=== PATIENT | female | born 1995 | race Caucasian/White ===

== ENCOUNTER 2017-08-13 12:13 | Emergency (ER) | payer MEDICAID ==
[2017-08-13] MEDS ORDERED: NS 0.9% 1000 ML* 1,000 ML IV ONE (13:13)
[2017-08-13] MEDS ORDERED: Ketorolac INJ* 30 MG/ML 1 ML VIAL IV ONE (13:13)
[2017-08-13 13:25] LABS: Hematocrit 43 % (35-47); Hemoglobin 14.6 g/dl (12.0-16.0); Mean Corpuscular HGB Conc 34 g/dl (31-36); Mean Corpuscular Hemoglobin 30 pg (27-31); Mean Corpuscular Volume 89 fL (80-97); Mean Platelet Volume 9 um3 (7.4-10.4); Red Blood Count 4.87 10^6/ul (4.0-5.4); Red Cell Distribution Width 13 % (10.5-15); White Blood Count 7.5 10^3/ul (3.5-10.8)
[2017-08-13 13:36] LABS: Urine Bacteria Absent (Absent); Urine Bilirubin Negative (Negative); Urine Glucose Negative (Negative); Urine Nitrite Negative (Negative)
[2017-08-13 13:42] LABS: ALT 37 U/L (7-52); AST 21 U/L (13-39); Albumin 5.1 g/dL (3.2-5.2); Alkaline Phosphatase 66 U/L (34-104); Anion Gap 9 mmol/L (2-11); BUN/Creatinine Ratio 20.2 (8-20); Blood Urea Nitrogen 19 mg/dL (6-24); C Reactive Protein 3.49 mg/L (< 5.00); CO2 Carbon Dioxide 25 mmol/L (22-32); Calcium 10.6 mg/dL (8.6-10.3); Chloride 104 mmol/L (101-111); EGFR African American 95.8 (>60); EGFR Non-African American 74.5 (>60); Globulin 2.9 g/dL (2-4); Glucose 93 mg/dL (70-100); Potassium 4.2 mmol/L (3.5-5.0); Sodium 138 mmol/L (133-145)
--- NOTE | 2017-08-13 14:58 | RAD ---
INDICATION: LEFT lower quadrant abdominal/flank pain. COMPARISON: No relevant prior exams available on the [facility] PACS for comparison. TECHNIQUE: Multidetector CT images were obtained from the lung bases to the ischial tuberosities. Evaluation of the viscera is limited without IV contrast. Multiplanar reformation. REPORT: Unremarkable visualized inferior thorax. 22 cm cephalocaudal liver is diffusely decreased in density consistent with fatty infiltration with focal sparing at the gallbladder fossa. No CT abnormality of the gallbladder. Negative for biliary dilatation. Unremarkable pancreas and spleen. Small splenule inferior to the dominant spleen. Negative for CT abnormality of the upper GI, small bowel, appendix visualized extending medial from the tip of the cecum, or colon. Negative for ascites, free air, or significant hernias. Normal adrenal glands. Unremarkable RIGHT kidney and ureter. Mild LEFT hydronephrosis is traced to a 3 mm far distal LEFT ureteral stone just proximal to the ureterovesicular junction. Decompressed urinary bladder limiting assessment. Unremarkable retroverted uterus and adnexal regions. Negative for lymphadenopathy. Unremarkable dominant retroperitoneal vasculature. IMPRESSION: 1. Mild LEFT hydronephrosis is traced to a 3 mm far distal ureteral stone. 2. Negative for additional nephrolithiasis. 3. Normal appendix documented. 4. Hepatomegaly and fatty infiltration of the liver.
[2017-08-13 15:59] VITALS: BP 139/81
[2017-08-13] MEDS ORDERED: Ciprofloxacin TAB* 500 MG PO ONE (17:53)
--- NOTE | 2017-08-13 20:37 | ED ---
Marvin Mack Gabriel, scribed for Ebenezer Tyler MD on 08/13/17 at 1251 . Abdominal Pain/Female - HPI Summary HPI Summary: This patient is a 21 year old F presenting to [facility] accompanied by family with a chief complaint of LLQ pain since this morning. The patient rates the pain 10/ 10 in severity, describes it stabbing and constant, with suddenly onset, and radiating through her entire left side. Symptoms alleviated by lying. She has also tried a heating pad with no relief. Patient reports nausea. Patient denies vomiting, urinary symptoms, and BM trouble. Last week patient states she had RLQ pain [facility] . - History of Current Complaint Chief Complaint: EDAbdPain Stated Complaint: LT ABD & FLANK PAIN Time Seen by Provider: 08/13/17 12:43 Hx Obtained From: Patient Onset/Duration: Lasting Hours - this morning, Still Present Timing: Constant Pain Intensity: 10 Pain Scale Used: 0-10 Numeric Location: Discrete At: RLQ Radiates: Yes Radiates to: Back, Flank Character: Other: - stabbing Associated Signs and Symptoms: Positive: Back Pain, Nausea. Negative: Constipation, Urinary Symptoms, Vomiting Allergies/Adverse Reactions: Allergies Allergy/AdvReac Type Severity Reaction Status Date / Time No Known Allergies Allergy Verified 08/13/17 12:31 PMH/Surg Hx/FS Hx/Imm Hx Previously Healthy: No Endocrine/Hematology History: Denies: Hx Diabetes Cardiovascular History: Denies: Hx Hypertension, Hx Pacemaker/ICD History: Denies: Hx Renal Disease Sensory History: Denies: Hx Hearing Aid Psychiatric History: Denies: Hx Panic Disorder - Surgical History Surgery Procedure, Year, and Place: t&a Infectious Disease History: No Infectious Disease History: Denies: History Other Infectious Disease, Traveled Outside the [place] in Last 30 Days - Family History Known Family History: Positive: Cardiac Disease - paternal grandmother - Social History Alcohol Use: None Substance Use Type: Reports: None Smoking Status (MU): Former Smoker Have You Smoked in the Last Year: No Review of Systems Gastrointestinal: Negative - BM trouble Positive: Abdominal Pain - LLQ , Nausea. Negative: Vomiting Positive: no symptoms reported All Other Systems Reviewed And Are Negative: Yes Physical Exam - Summary Physical Exam Summary: Appearance: The patient is well-nourished in no acute distress and in no acute pain. Skin: The skin is warm and dry and skin color reflects adequate perfusion. HEENT: ~The head is normocephalic and atraumatic. The pupils are equal and reactive. The conjunctivae are clear and without drainage. ~Nares are patent and without drainage. ~Mouth reveals moist mucous membranes and the throat is without erythema and exudate. ~The external ears are intact. The ear canals are patent and without drainage. The tympanic membranes are intact. Neck: the neck is supple with full range of motion and non-tender. There are no carotid bruits. ~There is no neck vein distension. Respiratory: Chest is non-tender. ~Lungs are clear to auscultation and breath sounds are symmetrical and equal. Cardiovascular: Heart is regular rate and rhythm. ~There is no murmur or rub auscultated. ~~There is no peripheral edema and pulses are symmetrical and equal. Abdomen: The abdomen is soft with mild cva tenderness on left, non-tender otherwise.~There are normal bowel sounds heard in all four quadrants and there is no organomegaly palpated. Musculoskeletal: There is no back tenderness noted. ~Extremities are non-tender with full range of motion. ~There is good capillary refill. ~There is no peripheral edema or calf tenderness elicited. Neurological: Patient is alert and oriented to person, place and time. ~The patient has symmetrical motor strength in all four extremities. ~Cranial nerves are grossly intact. Deep tendon reflexes are symmetrical and equal in all four extremities. Psychiatric: The patient has an appropriate affect and does not exhibit any anxiety or depression. Triage Information Reviewed: Yes Vital Signs On Initial Exam: Initial Vitals Temp Pulse Resp BP Pulse Ox 97.6 F 98 16 145/85 99 08/13/17 12:18 08/13/17 12:18 08/13/17 12:18 08/13/17 12:18 08/13/17 12:18 Vital Signs Reviewed: Yes Diagnostics - Vital Signs Vital Signs Temp Pulse Resp BP Pulse Ox 08/13/17 12:18 97.6 F 98 16 145/85 99 - Laboratory Lab Results: Lab Results 08/13/17 08/13/17 08/13/17 Range/Units 13:10 13:10 13:20 WBC 7.5 (3.5-10.8) 10^3/ul RBC 4.87 (4.0-5.4) 10^6/ul Hgb 14.6 (12.0-16.0) g/dl Hct 43 (35-47) % MCV 89 (80-97) fL MCH 30 (27-31) pg MCHC 34 (31-36) g/dl RDW 13 (10.5-15) % Plt Count 229 (150-450) 10^3/ul MPV 9 (7.4-10.4) um3 Neut % (Auto) 70.1 (38-83) % Lymph % (Auto) 20.4 L (25-47) % Hinds % (Auto) 7.7 (1-9) % Eos % (Auto) 1.3 (0-6) % Baso % (Auto) 0.5 (0-2) % Absolute Neuts (auto) 5.2 (1.5-7.7) 10^3/ul Absolute Lymphs (auto) 1.5 (1.0-4.8) 10^3/ul Absolute Monos (auto) 0.6 (0-0.8) 10^3/ul Absolute Eos (auto) 0.1 (0-0.6) 10^3/ul Absolute Basos (auto) 0 (0-0.2) 10^3/ul Absolute Nucleated RBC 0 10^3/ul Nucleated RBC % 0 Sodium 138 (133-145) mmol/L Potassium 4.2 (3.5-5.0) mmol/L Chloride 104 (101-111) mmol/L Carbon Dioxide 25 (22-32) mmol/L Anion Gap 9 (2-11) mmol/L BUN 19 (6-24) mg/dL Creatinine 0.94 (0.51-0.95) mg/dL Est GFR ( Amer) 95.8 (>60) Est GFR (Non-Af Amer) 74.5 (>60) BUN/Creatinine Ratio 20.2 H (8-20) Glucose 93 (70-100) mg/dL Calcium 10.6 H (8.6-10.3) mg/dL Total Bilirubin 0.30 (0.2-1.0) mg/dL AST 21 (13-39) U/L ALT 37 (7-52) U/L Alkaline Phosphatase 66 (34-104) U/L C-Reactive Protein 3.49 (< 5.00) mg/L Total Protein 8.0 (6.4-8.9) g/dL Albumin 5.1 (3.2-5.2) g/dL Globulin 2.9 (2-4) g/dL Albumin/Globulin Ratio 1.8 (1-3) Beta HCG, Quant < 0.60 mIU/mL Urine Color Yellow Urine Appearance Clear Urine pH 5.0 (5-9) Ur Specific [place] 1.023 (1.010-1.030) Urine Protein Negative (Negative) Urine Ketones Negative (Negative) Urine Blood Negative (Negative) Urine Nitrate Negative (Negative) Urine Bilirubin Negative (Negative) Urine Urobilinogen Negative (Negative) Ur Leukocyte Esterase 2+ H (Negative) Urine WBC (Auto) 1+(6-10/hpf) H (Absent) Urine RBC (Auto) Absent (Absent) Ur Squamous Epith Cells Present H (Absent) Urine Bacteria Absent (Absent) Urine Glucose Negative (Negative) Result Diagrams: 08/13/17 13:10 08/13/17 13:10 Lab Statement: Any lab studies that have been ordered have been reviewed, and results considered in the medical decision making process. 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 She was found to have a 3mm distal ureter stone. Her U/A showed 2+LE , 1+WBC's, Squamous cells, no bacteria and no RBC's. She was inadvertently D/C' d without antibiotics and I called her back after she got home. She had passed the stone, was pain-free and managed to catch the stone with the sieve. She came back to the ED and got her antibiotics. - Diagnoses Provider Diagnoses: Kidney stones, UTI (urinary tract infection) Discharge - Discharge Plan Condition: Stable Disposition: HOME Prescriptions: HYDROcodone/ACETAMIN 5-325 MG* [[place] 5-325 TAB*] 1 tab PO Q6H PRN #20 tab MDD 4 PRN Reason: Pain Tamsulosin CAP* [Flomax CAP*] 0.4 mg PO DAILY #7 cap Patient Education Materials: Hydrocodone/Acetaminophen (By mouth), Tamsulosin ( By mouth), Kidney Stones (ED) Referrals: No Primary Care Phys,NOPCP [Primary Care Provider] - Compa Kaur MD [Medical Doctor] - 1 Week Additional Instructions: Take Ibuprofen as needed for pain and follow up with Dr. Kaur, urology in one week. Return to emergency room for any new or worsening symptoms. The documentation as recorded by the Marvin kelly Gabriel accurately reflects the service I personally performed and the decisions made by me, Ebenezer Tyler MD.
== END 2017-08-13 15:58 | disposition home or self-care (01) ==
LOC: ED 12:13
DX: N20.0 Calculus of kidney (principal); N39.0 Urinary tract infection, site not specified; R11.0 Nausea; M54.9 Dorsalgia, unspecified; R10.32 Left lower quadrant pain
CPT/HCPCS: 36415; 74176; 80053; 81003; 81015; 84702; 85025; 86140; 87086; 96374; 99284; A9270-GY; J1885

== ENCOUNTER 2024-02-21 07:49 | Inpatient (IN) ==
[2024-02-21] MEDS ORDERED: Lidocaine 1% VIAL 10 MG/ML 30 ML VIAL INJ PRN (08:32)
[2024-02-21] MEDS: miSOPROStol 100 mcg TAB VAGINAL ONE (08:52)
[2024-02-21 09:35] LABS: Urine Benzodiazepine Screen None Detected (None Detect); Urine Cannabinoids Screen None Detected (None Detect); Urine Opiates Screen None Detected (None Detect)
[2024-02-21] MEDS: Buffered Lidocaine 1% SYRIN 1 ml INTRADERM ONE (13:15)
[2024-02-21] MEDS: Lactated Ringers 1000 ml BAG 1,000 ML IV ONE (13:25)
[2024-02-21] MEDS: Oxytocin in LR 20,000 MILLI.UNIT/1,000 ML BAG IV SCH (13:31)
[2024-02-21 13:50] LABS: ABS Lymphocytes 1.4 10^3/uL (1.0-4.8); ABS Monocytes 0.6 10^3/uL (0.0-0.9); ABS Neutrophils 7.5 10^3/uL (1.5-7.6); Eosinophil % 0.1 %; Hematocrit 35.9 % (35-45); Hemoglobin 12.2 g/dL (11.5-14.3); Lymphocyte % 14.6 %; Mean Corpuscular Hemoglobin 30.5 pg (27-33); Mean Corpuscular Hgb Conc 33.9 g/dL (31-36); Mean Corpuscular Volume 90.2 fL (80-97); Mean Platelet Volume 9.5 fL (7.5-11.2); Platelet Count 158 10^3/uL (150-450); Red Blood Count 3.99 10^6/uL (3.63-4.92); White Blood Count 9.6 10^3/uL (3.8-11.8)
[2024-02-21] MEDS ORDERED: Lidocaine 1.5% EPI 1:200,000 30 ML SDV ONE (15:26)
[2024-02-21] MEDS: Lactated Ringers 1000 ml BAG 1,000 ML IV SCH (15:32)
[2024-02-21] MEDS: OBEPIDURAL (200 ML) 200 ML EPIDURAL ONE (16:20)
[2024-02-21] MEDS ORDERED: Sodium Citrate/Citric Acid LIQ 15 ML UDC PO PRN (16:28)
[2024-02-21] MEDS ORDERED: Phenylephrine 40 mcg/mL 10mL (400mcg) SYRINGE IV PUSH PRN ×2 (16:28)
[2024-02-21] MEDS ORDERED: Lactated Ringers 1000 ml BAG 1,000 ML IV ONE (16:28)
[2024-02-21] MEDS ORDERED: Lactated Ringers 1000 ml BAG 1,000 ML IV SCH ×2 (17:00→20:00)
[2024-02-21] MEDS ORDERED: OBEPIDURAL (200 ML) 200 ML EPIDURAL SCH (17:00)
[2024-02-21 18:20] LABS: Urine Appearance Clear; Urine Bilirubin Negative (Negative); Urine Blood 2+ (Negative); Urine Color Colorless; Urine Glucose Negative (Negative); Urine Ketones 1+ (Negative); Urine Nitrite Negative (Negative); Urine Protein Negative (Negative); Urine Urobilinogen Negative (Negative)
[2024-02-21 18:24] LABS: Urine Bacteria Absent /HPF (Absent); Urine Red Blood Cell 3+(>10/hpf) /HPF (0-Trace); Urine Squamous Epithelial Cell Present /HPF (Absent); Urine White Blood Cell Trace(0-5/hpf) /HPF (0-Trace)
[2024-02-21] MEDS: Methylergonovine 0.2 mg AMPULE 1 ml AMP ONE (18:48)
[2024-02-21] MEDS ORDERED: Dibucaine 1% OINT 28.35 GM TUBE PR PRN (19:05)
[2024-02-21] MEDS ORDERED: Oxytocin in LR 20,000 MILLI.UNIT/1,000 ML BAG IV SCH (19:05)
[2024-02-21] MEDS ORDERED: Methylergonovine 0.2 mg AMPULE 1 ml AMP IM ONE (19:05)
[2024-02-21] MEDS: Witch Hazel PAD JAR TOPICAL PRN (20:16)
[2024-02-22 07:12] LABS: ABS Lymphocytes 1.5 10^3/uL (1.0-4.8); ABS Monocytes 0.8 10^3/uL (0.0-0.9); ABS Neutrophils 7.9 10^3/uL (1.5-7.6); Eosinophil % 0.1 %; Hematocrit 29.8 % (35-45); Hemoglobin 10.4 g/dL (11.5-14.3); Lymphocyte % 14.3 %; Mean Corpuscular Hemoglobin 31.5 pg (27-33); Mean Platelet Volume 9.6 fL (7.5-11.2); Platelet Count 137 10^3/uL (150-450); Red Blood Count 3.31 10^6/uL (3.63-4.92); Red Cell Distribution Width 13.6 % (12-17); White Blood Count 10.2 10^3/uL (3.8-11.8)
[2024-02-22 19:38] VITALS: BP 145/79
== END 2024-02-22 19:00 | disposition home or self-care (01) | DRG 560 ==
LOC: MCHOBOUT 07:49 → MCHOB 08:39
PROVIDERS: ADMIT Midwife; ATTEND Midwife